=== PATIENT | female | born 1960 | race Caucasian/White ===

== ENCOUNTER → 2016-02-16 | Outpatient (CLI) | payer MEDICAID, OTHER ==
[~2016-02-16] MED LIST: ATEN-102 PO; ATEN50TA PO; CELE20TA PO; CLON-352 PO; LEVO.125 PO; LEVO112T2 PO; LISI10TA3 PO; LORTA5 PO; MELO15TA2 PO; PENI500T PO; PRAV10TA PO; PROT40TA PO; TRAM50TA PO
[2016-02-16 11:12] LABS: HEMATOCRIT 45.1 % (35.0-46.0); MEAN CELL VOLUME 85.7 FL (80.0-100.0); MEAN CORPUSCULAR HEMOGLOBIN 29.3 PG (27.0-34.0); MEAN CORPUSCULAR HGB CONC 34.2 % (32.0-36.0); PLATELET COUNT 274 TH/MM3 (150-450); RED BLOOD COUNT 5.26 MIL/MM3 (4.00-5.30); RED CELL DISTRIBUTION WIDTH 13.6 % (11.6-17.2); REVIEW FLAG FINAL
[2016-02-16 11:51] LABS: ALKALINE PHOSPHATASE 161 U/L (45-117); ALT (GPT) 21 U/L (10-53); ANION GAP 7 MEQ/L (5-15); AST (GOT) 15 U/L (15-37); BICARBONATE 28.6 MEQ/L (21.0-32.0); BLOOD UREA NITROGEN 11 MG/DL (7-18); CHLORIDE 104 MEQ/L (98-107); GLOMERULAR FILTRATION RATE 61 ML/MIN (>89); GLUCOSE,FASTING 106 MG/DL (74-99); HDL CHOLESTEROL 42.3 MG/DL (40.0-60.0); LDL CHOLESTEROL 110 MG/DL (0-99); POTASSIUM 4.4 MEQ/L (3.5-5.1); SODIUM (NA) 140 MEQ/L (136-145); TOTAL BILIRUBIN ADULT 0.4 MG/DL (0.2-1.0)
== END ==
LOC: CLAB 10:50
DX: I10 Essential (primary) hypertension (principal); E03.9 Hypothyroidism, unspecified
CPT/HCPCS: 36415; 80053; 80061; 84443; 85027

== ENCOUNTER 2016-07-01 22:15 | Observation (INO) | payer OTHER, MEDICAID ==
[~2016-07-01] VITALS: Ht 160 cm; Wt 95.0 kg
[~2016-07-01 22:15] MED LIST changes: -ATEN50TA PO; -LEVO112T2 PO; -LISI10TA3 PO; -PRAV10TA PO; -PROT40TA PO
[2016-07-01 22:19] VITALS: BP 177/97; PULSE 55; RESP 14; TEMP 98; O2SAT 98
[2016-07-01] MEDS ORDERED: LEVO112T2 PO (22:54)
[2016-07-01] MEDS ORDERED: ATEN50TA PO (22:54)
[2016-07-01] MEDS ORDERED: PRAV10TA PO (22:54)
[2016-07-01] MEDS ORDERED: LISI10TA3 PO (22:54)
[2016-07-01] MEDS ORDERED: PANTOPRAZOLE SODIUM 40 MG VIAL IV PUSH ONE (23:15)
[2016-07-01] MEDS ORDERED: ONDANSETRON HCL 4 MG/2 ML VIAL IV PUSH ONE (23:15)
[2016-07-01] MEDS ORDERED: SODIUM CHLOR 0.9% 1000 ML INJ 1,000 ML IV ONE (23:15)
--- NOTE | 2016-07-01 23:23 | PD ---
HPI Chief Complaint: Pain: Acute or Chronic Time Seen by Provider: 22:46 Travel History International Travel<30 days: No Contact w/Intl Traveler<30days: No Traveled to known affect area: No History of Present Illness HPI This 56-year-old female is complaining of epigastric pain which radiates to her back. Since having the pain for a couple of days. She developed a infection in her left ear. She has an earache in. She was initially started on Augmentin. When she started having pain in her stomach she changed from Augmentin to Zithromax. She is still having the pain. She does not drink alcohol. She has a history of cholecystectomy. [facility] Past Medical History Anxiety: Yes Depression: Yes Diminished Hearing: No GERD: Yes Hypertension: Yes Thyroid Disease: Yes ?: Not Past Surgical History Section: Yes Cholecystectomy: Yes Hysterectomy: Yes Social History Alcohol Use: No Tobacco Use: Yes (02/07 PPD) Substance Use: No Allergies-Medications (Allergen,Severity, Reaction): Coded Allergies: No Known Allergies (Verified , 07/04/13) Reported Meds & Prescriptions Reported Meds & Active Scripts Active Reported Lisinopril 10 Mg Tab 10 Mg PO DAILY Pravastatin 10 Mg Tab 10 Mg PO DAILY Levothyroxine (Levothyroxine Sodium) 112 Mcg Tab 112 Mcg PO DAILY Atenolol 50 Mg Tab 50 Mg PO DAILY Review of Systems General / Constitutional: No: Fever, Chills Eyes: No: Diploplia HENT: Positive: Earache Cardiovascular: No: Chest Pain or Discomfort, Palpitations Respiratory: No: Cough, Shortness of Breath Gastrointestinal: Positive: Nausea, Vomiting, Abdominal Pain Genitourinary: No: Urgency, Frequency Musculoskeletal: No: Myalgias, Arthralgias Skin: No Rash, No Itching Neurologic: No: Weakness, Dizziness Endocrine: No: Heat Intolerance, Cold Intolerance Hematologic/Lymphatic: No: Easy Bruising Physical Exam Narrative GENERAL: Well-developed female SKIN: Focused skin assessment warm/dry. HEAD: Atraumatic. Normocephalic. EYES: Pupils equal and round. No scleral icterus. No injection or drainage. ENT: No nasal bleeding or discharge. Mucous membranes pink and moist. NECK: Trachea midline. No JVD. CARDIOVASCULAR: Regular rate and rhythm. No murmur appreciated. RESPIRATORY: No accessory muscle use. Clear to auscultation. Breath sounds equal bilaterally. GASTROINTESTINAL: Abdomen soft, there is some epigastric tenderness, nondistended. Hepatic and splenic margins not palpable. MUSCULOSKELETAL: No obvious deformities. No clubbing. No cyanosis. No edema. NEUROLOGICAL: Awake and alert. No obvious cranial nerve deficits. Motor grossly within normal limits. Normal speech. PSYCHIATRIC: Appropriate mood and affect; insight and judgment normal. Data Data Last Documented VS Vital Signs Date Time Temp Pulse Resp B/P Pulse Ox O2 Delivery O2 Flow Rate FiO2 07/01/16 22:19 98.0 55 14 177/97 98 Orders Complete Blood Count With Diff (07/01/16 23:03) Comprehensive Metabolic Panel (07/01/16 23:03) Lipase (07/01/16 23:03) Sodium Chlor 0.9% 1000 Ml Inj (Ns 1000 M (07/01/16 23:15) Ondansetron Inj (Zofran Inj) (07/01/16 23:15) Pantoprazole Inj (Protonix Inj) (07/01/16 23:15) Hydromorphone Pf Inj (Dilaudid Pf Inj) (07/01/16 23:45) Al-Mag Hy-Si 40-40-4 Mg/Ml Liq (Mag-Al P (07/01/16 23:45) Labs Laboratory Tests Test 07/01/16 23:20 White Blood Count 11.7 TH/MM3 Red Blood Count 5.20 MIL/MM3 Hemoglobin 15.4 GM/DL Hematocrit 46.7 % Mean Corpuscular Volume 89.8 FL Mean Corpuscular Hemoglobin 29.6 PG Mean Corpuscular Hemoglobin 33.0 % Concent Red Cell Distribution Width 14.0 % Platelet Count 299 TH/MM3 Mean Platelet Volume 7.9 FL Neutrophils (%) (Auto) 63.7 % Lymphocytes (%) (Auto) 26.1 % Monocytes (%) (Auto) 5.9 % Eosinophils (%) (Auto) 3.8 % Basophils (%) (Auto) 0.5 % Neutrophils # (Auto) 7.4 TH/MM3 Lymphocytes # (Auto) 3.1 TH/MM3 Monocytes # (Auto) 0.7 TH/MM3 Eosinophils # (Auto) 0.4 TH/MM3 Basophils # (Auto) 0.1 TH/MM3 CBC Comment DIFF FINAL Differential Comment Sodium Level 140 MEQ/L Potassium Level 3.8 MEQ/L Chloride Level 104 MEQ/L Carbon Dioxide Level 31.0 MEQ/L Anion Gap 5 MEQ/L Blood Urea Nitrogen 13 MG/DL Creatinine 1.00 MG/DL Estimat Glomerular Filtration 58 ML/MIN Rate Random Glucose 134 MG/DL Calcium Level 9.2 MG/DL Total Bilirubin 0.5 MG/DL Aspartate Amino Transf 64 U/L (AST/SGOT) Alanine Aminotransferase 257 U/L (ALT/SGPT) Alkaline Phosphatase 250 U/L Total Protein 8.3 GM/DL Albumin 3.5 GM/DL Lipase 498 U/L [facility] Medical Decision Making Medical Screen Exam Complete: Yes Emergency Medical Condition: Yes Medical Record Reviewed: Yes Differential Diagnosis Differential includes gastritis, reflux, postcholecystectomy syndrome Narrative Course Symptoms or develop: The patient is taking Augmentin and then Zithromax. I suspect the antibiotics may be causing some gastritis. She has a history of cholecystectomy over 10 years ago. Blood work has come back with a lipase of 498. AST is 64 and ALT 257. In view of the abnormal results I have ordered a CT scan to further assess the etiology of her pain Otis aGlloway MD July 01, 2016 23:23
[2016-07-01 23:34] LABS: AUTOMATED NEUTROPHIL # 7.4 TH/MM3 (1.8-7.7); BASOPHIL # 0.1 TH/MM3 (0-0.2); BASOPHIL % 0.5 % (0.0-2.0); EOSINOPHIL # 0.4 TH/MM3 (0-0.4); EOSINOPHIL % 3.8 % (0.0-4.0); HEMATOCRIT 46.7 % (35.0-46.0); LYMPH % 26.1 % (9.0-44.0); LYMPHOCYTE # 3.1 TH/MM3 (1.0-4.8); MEAN CELL VOLUME 89.8 FL (80.0-100.0); MEAN CORPUSCULAR HEMOGLOBIN 29.6 PG (27.0-34.0); MONO % 5.9 % (0.0-8.0); NEUT % 63.7 % (16.0-70.0); PLATELET COUNT 299 TH/MM3 (150-450); WHITE BLOOD COUNT 11.7 TH/MM3 (4.0-11.0)
[2016-07-01 23:36] LABS: HEMO FLAGS DIFF FINAL
[2016-07-01 23:41] LABS: CHLORIDE 104 MEQ/L (98-107); POTASSIUM 3.8 MEQ/L (3.5-5.1); SODIUM (NA) 140 MEQ/L (136-145)
[2016-07-01 23:45] LABS: ANION GAP 5 MEQ/L (5-15); BLOOD UREA NITROGEN 13 MG/DL (7-18)
[2016-07-01] MEDS ORDERED: ALUMINUM/MAGNESIUM/SIMETH 30 ML CUP PO ONE (23:45)
[2016-07-01] MEDS ORDERED: HYDROmorphone HCL PF 1 MG/ML VIAL IV PUSH ONE (23:45)
[2016-07-01 23:48] LABS: ALT (GPT) 257 U/L (10-53); AST (GOT) 64 U/L (15-37); GLOMERULAR FILTRATION RATE 58 ML/MIN (>89)
[2016-07-01 23:49] LABS: TOTAL BILIRUBIN ADULT 0.5 MG/DL (0.2-1.0)
[2016-07-01 23:51] LABS: ALKALINE PHOSPHATASE 250 U/L (45-117)
--- NOTE | 2016-07-01 23:57 | PD ---
Physical Exam Date Seen by Provider: July 01, 2016 Time Seen by Provider: 23:55 Narrative Accept in transfer of care from Dr. Rico Data Data Last Documented VS Vital Signs Date Time Temp Pulse Resp B/P Pulse Ox O2 Delivery O2 Flow Rate FiO2 07/01/16 22:19 98.0 55 14 177/97 98 Orders Complete Blood Count With Diff (07/01/16 23:03) Comprehensive Metabolic Panel (07/01/16 23:03) Lipase (07/01/16 23:03) Sodium Chlor 0.9% 1000 Ml Inj (Ns 1000 M (07/01/16 23:15) Ondansetron Inj (Zofran Inj) (07/01/16 23:15) Pantoprazole Inj (Protonix Inj) (07/01/16 23:15) Hydromorphone Pf Inj (Dilaudid Pf Inj) (07/01/16 23:45) Al-Mag Hy-Si 40-40-4 Mg/Ml Liq (Mag-Al P (07/01/16 23:45) Labs Laboratory Tests Test 07/01/16 23:20 White Blood Count 11.7 TH/MM3 Red Blood Count 5.20 MIL/MM3 Hemoglobin 15.4 GM/DL Hematocrit 46.7 % Mean Corpuscular Volume 89.8 FL Mean Corpuscular Hemoglobin 29.6 PG Mean Corpuscular Hemoglobin 33.0 % Concent Red Cell Distribution Width 14.0 % Platelet Count 299 TH/MM3 Mean Platelet Volume 7.9 FL Neutrophils (%) (Auto) 63.7 % Lymphocytes (%) (Auto) 26.1 % Monocytes (%) (Auto) 5.9 % Eosinophils (%) (Auto) 3.8 % Basophils (%) (Auto) 0.5 % Neutrophils # (Auto) 7.4 TH/MM3 Lymphocytes # (Auto) 3.1 TH/MM3 Monocytes # (Auto) 0.7 TH/MM3 Eosinophils # (Auto) 0.4 TH/MM3 Basophils # (Auto) 0.1 TH/MM3 CBC Comment DIFF FINAL Differential Comment Sodium Level 140 MEQ/L Potassium Level 3.8 MEQ/L Chloride Level 104 MEQ/L Carbon Dioxide Level 31.0 MEQ/L Anion Gap 5 MEQ/L Blood Urea Nitrogen 13 MG/DL Creatinine 1.00 MG/DL Estimat Glomerular Filtration 58 ML/MIN Rate Random Glucose 134 MG/DL Calcium Level 9.2 MG/DL Total Bilirubin 0.5 MG/DL Aspartate Amino Transf 64 U/L (AST/SGOT) Alanine Aminotransferase 257 U/L (ALT/SGPT) Alkaline Phosphatase 250 U/L Total Protein 8.3 GM/DL Albumin 3.5 GM/DL Lipase 498 U/L [facility] Medical Record Reviewed: Yes Supervised Visit with JAJA: No Differential Diagnosis Accepted in transfer of care from Dr. Rico Narrative Course Accepted in transfer of care from Dr. Rico; patient with abnormal lipase and LFTs; CT has been ordered follow up results and patient disposition Shante Suh MD July 01, 2016 23:57
[2016-07-02] VITALS (8 sets, daily range): BP systolic 143–166; BP diastolic 61–81; PULSE 40–87; RESP 16–20; TEMP 96.2–96.5; O2SAT 97–99
[2016-07-02] MEDS ORDERED: IOHEXOL 350 MG/ML 10 ML VIAL (for RAD DIAG) IV ONE (00:24)
--- NOTE | 2016-07-02 00:37 | RADHPO ---
EXAM DATE/TIME: 07/02/2016 00:13 [place] COMPARISON: No previous studies available for comparison. INDICATIONS : Abdomen and back pain. Elevated LFT's IV CONTRAST: 95 cc Omnipaque 350 (iohexol) IV ORAL CONTRAST: No oral contrast ingested. RADIATION DOSE: 21.37 CTDIvol (mGy) MEDICAL HISTORY : Hypertension. Gastroesophageal reflux disease. SURGICAL HISTORY : Cholecystectomy. Hysterectomy. ENCOUNTER: Initial ACUITY: 3 days PAIN SCALE: 5/10 LOCATION: abdomen and back TECHNIQUE: Volumetric scanning of the abdomen and pelvis was performed. Using automated exposure control and ad justment of the mA and/or kV according to patient size, radiation dose was kept as low as reasonably achievable to obtain optimal diagnostic quality images. FINDINGS: LOWER LUNGS: The visualized lower lungs are clear. LIVER: Homogeneous density without lesion. There is no dilation of the biliary tree. Patient is cholecystec [place]. There are some numerous periportal lymph nodes none are pathologically enlarged. SPLEEN: Normal size without lesion. PANCREAS: Within normal limits. KIDNEYS: Normal in size and shape. There is no mass, stone or hydronephrosis. ADRENAL GLANDS: Within normal limits. VASCULAR: There is no aortic aneurysm. BOWEL/MESENTERY: The stomach, small bowel, and colon demonstrate no acute abnormality. There is no free intraperitone al air or fluid. ABDOMINAL WALL: Within normal limits. RETROPERITONEUM: There is no lymphadenopathy. BLADDER: No wall thickening or mass. REPRODUCTIVE: Within normal limits. INGUINAL: There is no lymphadenopathy or hernia. MUSCULOSKELETAL: Within normal limits for patient age. CONCLUSION: Cholecystectomy clips. Numerous small periportal and mesenteric lymph nodes without pathologic enlarg ement. No evidence of bowel obstruction. Appendix is normal. Reji Ahumada MD on July 02, 2016 at 0:33 Board Certified Radiologist. This report was verified electronically.
[2016-07-02] MEDS ORDERED: SODIUM CHLOR 0.9% 1000 ML INJ 1,000 ML IV SCH (02:17)
[2016-07-02] MEDS ORDERED: SODIUM CHLORIDE 0.9% FLUSH 10 ML FLUSH IV FLUSH PRN (02:30)
[2016-07-02] MEDS ORDERED: PANTOPRAZOLE SODIUM 40 MG VIAL IV PUSH ONE (02:30)
[2016-07-02] MEDS ORDERED: LACTULOSE SYRUP 20 GM/30 ML CUP PO PRN (02:30)
[2016-07-02] MEDS ORDERED: SODIUM CHLORIDE 0.9% FLUSH 10 ML FLUSH IVF PRN (02:30)
[2016-07-02] MEDS ORDERED: BISACODYL 10 MG SUPP RECTAL PRN (02:30)
[2016-07-02] MEDS ORDERED: HYDROmorphone HCL PF 1 MG/ML VIAL IV PRN (02:30)
[2016-07-02] MEDS ORDERED: ONDANSETRON HCL 4 MG/2 ML VIAL IVP PRN (02:30)
[2016-07-02] MEDS ORDERED: MAGNESIUM HYDROXIDE SUSP 30 ML CUP PO PRN (02:30)
[2016-07-02] MEDS ORDERED: SENNOSIDES 8.6 MG TAB PO PRN (02:30)
[2016-07-02] MEDS ORDERED: CIPROFLOXACIN 400 MG PREMIX 200 ML IV SCH (03:00)
[2016-07-02] MEDS ORDERED: metroNIDAZOLE 500 MG INJ 100 ML IV SCH (04:00)
--- NOTE | 2016-07-02 07:25 | HHI.HP ---
[facility] Miguelito Pimentel DO Admission Diagnosis abdominal pain; possible pancreatitis Diagnoses: (1) Abdominal pain Diagnosis: Principal (2) Elevated lipase Diagnosis: Principal (3) Elevated liver enzymes Diagnosis: Principal Chief Complaint: Abdominal pain Travel History International Travel<30 Days: No Contact w/Intl Traveler <30 Da: No Traveled to Known Affected Are: No History of Present Illness Written by Miquel Patel, acting as scribe for Dr. Trevizo on 07/02/16 at 07: 21. 56-year-old female with known history of hypertension, hyperlipidemia , hypothyroidism, gastroesophageal reflux, anxiety/depression who presented to the hospital because of abdominal pain with nausea and vomiting. Patient states that her symptoms started on June 28, 2016 when she was diagnosed with an ear infection and she was started on Augmentin. Patient states that she took 2 doses of medication because she developed severe abdominal discomfort with nausea so she called the doctor's office that prescribed her the antibiotics and notified them of her discomfort so they changed her to Zithromax. Patient states that she took her first 2 pills on June 30, 2016. Patient started developing the abdominal discomfort again so her and her son decided to come to the emergency department for evaluation. Patient presented to the parking lot and she belched and the pain went away so she went back home. Patient took her dose of Zithromax last evening followed by a glass of water and she again had nausea with episode of vomiting. Because of those reasons she came to emergency department for evaluation. Patient states that the pain is located in the epigastric region radiating into her back. Described as a 5/10 on a pain scale. She has had associated nausea with one episode of vomiting. She has tried to make herself vomit multiple times without any actual emesis. The pain appears to be worsen after she takes antibiotics and after she eats or drinks anything. She has not had a bowel movement in 2-3 days. Last time she tried have a bowel movement was 2 days ago she said that it was a very small amount of stool. Patient did come to emergency department had workup performed and found to have elevated liver enzymes, lipase level. CT scan of the abdomen was unremarkable. Because of the patient's clinical presentation and abnormal findings patient was recommended observation the hospital Review of Systems Constitutional: COMPLAINS OF: Change in appetite, DENIES: Diaphoretic episodes , Fatigue, Fever, Weight gain, Weight loss, Chills, Dizziness, Night Sweats Eyes: DENIES: Blurred vision, Diplopia, Eye inflammation, Eye pain, Vision loss , Photosensitivity, Double Vision Ears, nose, mouth, throat: COMPLAINS OF: Ear Pain, DENIES: Vertigo, Nasal discharge, Throat pain, Running Nose, Toothache Respiratory: DENIES: Apneas, Cough, Snoring, Wheezing, Hemoptysis, Sputum production, Shortness of breath Cardiovascular: DENIES: Chest pain, Palpitations, Syncope, Dyspnea on Exertion , Lower Extremity Edema, Orthopnea Gastrointestinal: COMPLAINS OF: Abdominal pain, Constipation, Nausea, Vomiting , DENIES: Black stools, Bloody stools, Diarrhea, Difficulty Swallowing, Anorexia Neurologic: DENIES: Abnormal gait, Headache, Localized weakness, Paresthesias, Seizures, Speech Problems, Tremor, Poor Balance Psychiatric: COMPLAINS OF: Anxiety, Depression, DENIES: Confusion, Mood changes, Hallucinations, Agitation, Suicidal Ideation, Homicidal Ideation, Delusions Past Family Social History Past Medical History Hypertension Hyperlipidemia Hypothyroidism Gastroesophageal reflux Tobacco use Anxiety/depression Past Surgical History Cholecystectomy Right oophorectomy Reported Medications Reported Meds & Active Scripts Active Reported Lisinopril 10 Mg Tab 10 Mg PO DAILY Pravastatin 10 Mg Tab 10 Mg PO DAILY Levothyroxine (Levothyroxine Sodium) 112 Mcg Tab 112 Mcg PO DAILY Atenolol 50 Mg Tab 50 Mg PO DAILY Allergies: Coded Allergies: No Known Allergies (Verified , 07/02/16) Family History Reviewed is significant for mother having strokes. She states that her father recently , however she does not know from what Social History Patient smokes a half a pack a cigarettes a day since she was 14 years old. Denies any alcohol or illicit drugs Physical Exam Vital Signs Vital Signs Date Time Temp Pulse Resp B/P Pulse Ox O2 Delivery O2 Flow Rate FiO2 07/02/16 06:21 07/02/16 05:08 18 07/02/16 05:04 45 153/81 07/02/16 02:20 78 18 158/75 99 Room Air 07/02/16 00:59 87 16 166/61 99 Room Air 07/01/16 22:19 98.0 55 14 177/97 98 Physical Exam GENERAL: Well-developed, well-nourished, in no acute distress. alert and orientated HEENT: Head is normocephalic without any lesions or masses noted. Facial features are symmetric. Eyes: Pupils equal round reactive to light. Extraocular muscles are intact. Conjunctivae were clear. Oropharyngeal: Pharynx without any erythema edema. Tongue is midline without deviation. Buccal mucosa is moist without any masses or lesions NECK: Supple without any masses. Trachea midline no deviation. No JVD, no bruits are appreciated CARDIAC: Regular rhythm, regular rate. S1/S2 are heard. No murmurs gallops or rubs. LUNGS: Clear to auscultation bilaterally. No wheeze, rhonchi or rales. No use of accessory muscles on inspiration or expiration. ABDOMEN: Soft, nontender. Nondistended. Bowel sounds heard in all 4 quadrants. No organomegaly or masses. Negative rebound, negative guarding EXTREMITIES: No edema, pulses are equal bilaterally. No cyanosis or clubbing NEUROLOGY: Mood and affect appear appropriate. Cranial nerves II through XII grossly intact. Muscle strength 5/5 in upper and lower extremities bilaterally. Deep tendon reflexes are 2+ in upper and lower extremities bilaterally. Laboratory Laboratory Tests Test 07/01/16 23:20 White Blood Count 11.7 Red Blood Count 5.20 Hemoglobin 15.4 Hematocrit 46.7 Mean Corpuscular Volume 89.8 Mean Corpuscular Hemoglobin 29.6 Mean Corpuscular Hemoglobin 33.0 Concent Red Cell Distribution Width 14.0 Platelet Count 299 Mean Platelet Volume 7.9 Neutrophils (%) (Auto) 63.7 Lymphocytes (%) (Auto) 26.1 Monocytes (%) (Auto) 5.9 Eosinophils (%) (Auto) 3.8 Basophils (%) (Auto) 0.5 Neutrophils # (Auto) 7.4 Lymphocytes # (Auto) 3.1 Monocytes # (Auto) 0.7 Eosinophils # (Auto) 0.4 Basophils # (Auto) 0.1 CBC Comment DIFF FINAL Differential Comment Sodium Level 140 Potassium Level 3.8 Chloride Level 104 Carbon Dioxide Level 31.0 Anion Gap 5 Blood Urea Nitrogen 13 Creatinine 1.00 Estimat Glomerular Filtration 58 Rate Random Glucose 134 Calcium Level 9.2 Total Bilirubin 0.5 Aspartate Amino Transf 64 (AST/SGOT) Alanine Aminotransferase 257 (ALT/SGPT) Alkaline Phosphatase 250 Total Protein 8.3 Albumin 3.5 Lipase 498 Result Diagram: 07/01/16 2320 07/01/16 2320 Imaging Last Impressions Abdomen/Pelvis CT 07/02/16 0000 Signed Impressions: Service Date/Time: Saturday, July 02, 2016 00:13 - CONCLUSION: Cholecystectomy clips. Numerous small periportal and mesenteric lymph nodes without pathologic enlargement. No evidence of bowel obstruction. Appendix is normal. Reji Ahumada MD Assessment and Plan Assessment and Plan Abdominal pain with elevated liver enzymes and lipase level CT scan does not indicate any acute abnormality Continue to follow-up liver enzymes and lipase level IV fluids Pain control with oxycodone, Dilaudid Clear liquid diet, advance as tolerated Hypertension Blood pressure mildly elevated this time with episodic bradycardia Monitor blood pressure and heart rate closely Resume home medications Gastroesophageal reflux Protonix DVT prevention Sequential compression devices Discussed Condition With This note was transcribed by orville Patel. I, Dr. Filippo Trevizo personally performed the history, physical exam, and medical decision making; and confirmed the accuracy of the information in the transcribed note. Authenticated by Dr. Filippo Trevizo on 07/02/16 at 11:54. Problem Qualifiers (1) Abdominal pain: Qualified Code: R10.13 - Epigastric pain Miquel Patel July 02, 2016 07:25 Filippo Trevizo DO July 02, 2016 11:55
[2016-07-02 07:26] LABS: AUTOMATED NEUTROPHIL # 5.5 TH/MM3 (1.8-7.7); BASOPHIL # 0.1 TH/MM3 (0-0.2); BASOPHIL % 0.7 % (0.0-2.0); EOSINOPHIL # 0.4 TH/MM3 (0-0.4); EOSINOPHIL % 4.3 % (0.0-4.0); HEMATOCRIT 39.3 % (35.0-46.0); HEMO FLAGS DIFF FINAL; LYMPH % 25.2 % (9.0-44.0); LYMPHOCYTE # 2.3 TH/MM3 (1.0-4.8); MEAN CELL VOLUME 90.5 FL (80.0-100.0); MEAN CORPUSCULAR HEMOGLOBIN 30.1 PG (27.0-34.0); MEAN CORPUSCULAR HGB CONC 33.3 % (32.0-36.0); MONO % 8.4 % (0.0-8.0); NEUT % 61.4 % (16.0-70.0); PLATELET COUNT 268 TH/MM3 (150-450); RED BLOOD COUNT 4.35 MIL/MM3 (4.00-5.30); RED CELL DISTRIBUTION WIDTH 13.5 % (11.6-17.2); WHITE BLOOD COUNT 9.1 TH/MM3 (4.0-11.0)
[2016-07-02 07:35] LABS: CHLORIDE 107 MEQ/L (98-107); SODIUM (NA) 142 MEQ/L (136-145)
[2016-07-02 07:47] LABS: ANION GAP 5 MEQ/L (5-15); BLOOD UREA NITROGEN 11 MG/DL (7-18)
[2016-07-02 07:50] LABS: AST (GOT) 49 U/L (15-37)
[2016-07-02 07:52] LABS: ALT (GPT) 189 U/L (10-53)
[2016-07-02 07:53] LABS: ALKALINE PHOSPHATASE 201 U/L (45-117); GLOMERULAR FILTRATION RATE 75 ML/MIN (>89)
[2016-07-02 07:55] LABS: TOTAL BILIRUBIN ADULT 0.4 MG/DL (0.2-1.0)
[2016-07-02] MEDS ORDERED: LEVOTHYROXINE SODIUM 112 MCG TAB PO SCH (08:00)
[2016-07-02] MEDS ORDERED: PANTOPRAZOLE SOD 40 MG DELAYED RELEASE TAB PO SCH (09:00)
[2016-07-02] MEDS ORDERED: DOCUSATE SODIUM 50 MG/SENNA 8.6 MG TAB PO SCH (09:00)
[2016-07-02] MEDS ORDERED: ATENOLOL 50 MG TAB PO SCH (09:00)
[2016-07-02] MEDS ORDERED: SODIUM CHLORIDE 0.9% FLUSH 10 ML FLUSH IV FLUSH SCH ×2 (09:00)
[2016-07-02] MEDS ORDERED: PRAVASTATIN SOD 10 MG TAB PO SCH ×2 (09:00→21:00)
[2016-07-02] MEDS ORDERED: LISINOPRIL 10 MG TAB PO SCH ×2 (09:00→21:00)
[2016-07-02] MEDS ORDERED: LISI10TA3 PO (15:43)
[2016-07-02] MEDS ORDERED: PROT40TA PO (15:43)
--- NOTE | 2016-07-02 15:44 | HHI.DCPOC ---
Discharge Care Plan Diagnosis: (1) Gastroesophageal reflux (2) Hypothyroidism (3) Hypertension (4) Abdominal pain (5) Elevated liver enzymes (6) Elevated lipase (7) Bradycardia Goals to Promote Your Health * To prevent worsening of your condition and complications * To maintain your health at the optimal level Directions to Meet Your Goals Take your medications as prescribed Follow your dietary instruction Follow activity as directed Keep your appointments as scheduled Take your immunizations and boosters as scheduled If your symptoms worsen call your PCP, if no PCP go to Urgent Care Center or Emergency Room Smoking is Dangerous to Your Health. Avoid second hand smoke Call the 24-hour hour crisis hotline for domestic abuse at Filippo Trevizo DO July 02, 2016 15:44
[2016-07-02] MEDS ORDERED: PANTOPRAZOLE SODIUM 40 MG VIAL IV PUSH SCH (21:00)
[2016-07-03] MEDS ORDERED: ATENOLOL 25 MG TAB PO SCH (09:00)
--- NOTE | 2016-07-03 14:54 | EKG ---
Date Performed: 07/02/2016 Time Performed: 16:12:28 PTAGE: 56 years EKG: Sinus bradycardia Normal ECG except for rate NO PREVIOUS TRACING DOCTOR: Royal Duran Interpretating Date/Time 07/03/2016 14:53:31
== END 2016-07-02 16:55 | disposition home or self-care (01) ==
LOC: PHED 22:15 → PHEDA 07-02 02:22 → PH3B 07-02 04:16
PROVIDERS: ADMIT Hospitalist; ATTEND Hospitalist
DX: R10.13 Epigastric pain (principal); K21.9 Gastro-esophageal reflux disease without esophagitis; I10 Essential (primary) hypertension; R74.8 Abnormal levels of other serum enzymes; E78.5 Hyperlipidemia, unspecified; E03.9 Hypothyroidism, unspecified; F41.9 Anxiety disorder, unspecified; F32.9 Major depressive disorder, single episode, unspecified; F17.210 Nicotine dependence, cigarettes, uncomplicated; Z90.49 Acquired absence of other specified parts of digestive tract
CPT/HCPCS: 74177; 80053; 83690; 85025; 93005; 96361; 96374; 96375; 99285; C9113; G0378; J0744; J1170; J2405; J7030; Q9967